=== PATIENT | female | born 1970 | race Caucasian/White ===

== ENCOUNTER → 2018-06-25 14:07 | Day surgery (SDC) | payer OTHER ==
[~2018-06-25 14:07] MED LIST: Buffered Lidocaine 1% SYRIN* 1 ML/SYRINGE INTRADERM ONE; Bupivacaine 0.25% SDV PF* 10 ML VIAL INJ ONE; HYDROcodone/ACETAMIN 5-325 MG* 1 TAB ONE; Lactated Ringers 1000 ML Bag* 1,000 ML IV SCH; Lidocaine 2% PF * 5 ML VIAL ONE; Naloxone* 0.4 MG/ML 1 ML VIAL IV PRN; Ondansetron INJ* 2 MG/ML VIAL IV PRN; Propofol* 10 MG/ML 20 ML BTL ONE; Sodium Citrate/Citric Acid* 15 ML UDC ONE; Sodium Citrate/Citric Acid* 15 ML UDC PO ONE; ceFAZolin 2 GM PREMIX in ORs 2 GM/50 ML BAG IVPB ONE; fentaNYL* 50 MCG/ML 2 ML VIAL (100 MCG VIAL) ONE
[2018-06-25] MEDS: fentaNYL* 50 MCG/ML 2 ML VIAL (100 MCG VIAL) IV PRN ×5 (18:00→18:35)
[2018-06-25 18:45] VITALS: BP 119/80
--- NOTE | 2018-06-26 08:24 | OP ---
DATE OF OPERATION: 06/25/18 - SDS DATE OF : 74 SURGEON: Jason Abreu MD. LAND MEASURER: JOHN Vegas. An loan assistant was needed for the procedure to aid in positioning of the arm. ANESTHESIOLOGIST: Dr. Rendon. ANESTHESIA: General. PRE-OP DIAGNOSIS: Right small finger proximal phalanx displaced fracture. POST-OP DIAGNOSIS: Right small finger proximal phalanx displaced fracture. OPERATIVE PROCEDURE: Closed reduction and percutaneous fixation of the right small finger proximal phalanx fracture. INDICATIONS: Whit has a fracture and apex palmar angulation. We had talked about her treatment options. She wanted to proceed with pinning of the fracture. She understands the risks of pin tract infection. She has had chronic pain issues. ESTIMATED BLOOD LOSS: 2 mL. COMPLICATIONS: None. FINDINGS: See above and below. DESCRIPTION OF PROCEDURE: Whit was seen in the preoperative holding area. The correct site, side, and procedure were identified. We came back to the operating room, and the arm was prepped and draped in the usual fashion and a time-out was performed. The arm was exsanguinated with the Esmarch and the tourniquet was inflated to 225 mmHg. I closed reduced the fracture. The alignment was confirmed on mini C -arm fluoroscopy. I passed one 0.045 K-wire from proximal radial extending out to distal ulna. This held the reduction nicely. I then took a second K-wire and passed it from proximal ulna extending out distal radial. The first wire I thought was causing just very slight overcorrection, so I backed it back up and as soon as I backed it back up, the fracture snapped into place. Then I readvanced it and got good fixation distally. At this point, everything was looking very good. The reduction was excellent. The pins were bent and clipped and dressed with Xeroform, 4x4s, sterile Webril, and then an ulnar gutter splint was applied. She was then taken to the recovery room in stable condition. [id number]/[facility] #: [id number] MTDD
== END | disposition home or self-care (01) ==
LOC: OR 14:07
PROVIDERS: ATTEND Orthopaedic Surgery Hand Surgery
DX: S62.616A Displaced fracture of proximal phalanx of right little finger, initial encounter for closed fracture (principal); J45.909 Unspecified asthma, uncomplicated; M19.90 Unspecified osteoarthritis, unspecified site; K21.9 Gastro-esophageal reflux disease without esophagitis; F41.8 Other specified anxiety disorders; M79.7 Fibromyalgia; Z87.891 Personal history of nicotine dependence; W19.XXXA Unspecified fall, initial encounter; Y92.9 Unspecified place or not applicable
CPT/HCPCS: 76000; 81025; A9270-GY; C1776; J0690; J2704; J3010; J3490

== ENCOUNTER → 2018-09-24 11:12 | Day surgery (SDC) | payer OTHER ==
[~2018-09-24 11:12] MED LIST changes: -Buffered Lidocaine 1% SYRIN* 1 ML/SYRINGE INTRADERM ONE; +Bupivacaine 0.5% SDV PF* 30ML VIAL ONE; -HYDROcodone/ACETAMIN 5-325 MG* 1 TAB ONE; -Lactated Ringers 1000 ML Bag* 1,000 ML IV SCH; +Lidocaine 1% INJ* 10 MG/ML 30 ML SDV ONE; -Lidocaine 2% PF * 5 ML VIAL ONE; -Naloxone* 0.4 MG/ML 1 ML VIAL IV PRN; -Ondansetron INJ* 2 MG/ML VIAL IV PRN; -Propofol* 10 MG/ML 20 ML BTL ONE; -Sodium Citrate/Citric Acid* 15 ML UDC ONE; -Sodium Citrate/Citric Acid* 15 ML UDC PO ONE; -ceFAZolin 2 GM PREMIX in ORs 2 GM/50 ML BAG IVPB ONE; -fentaNYL* 50 MCG/ML 2 ML VIAL (100 MCG VIAL) ONE
[2018-09-24 12:19] VITALS: BP 120/73
--- NOTE | 2018-09-24 13:31 | OP ---
DATE OF OPERATION: 09/24/18 - SDS DATE OF : 74 SURGEON: Jason Abreu MD CARD BOXER: JOHN Resendez ANESTHESIOLOGIST: None. ANESTHESIA: Local only with digital block performed via 0.5% Marcaine. PRE-OP DIAGNOSIS: Right ring finger indeterminate soft tissue mass. POST-OP DIAGNOSIS: Right ring finger indeterminate soft tissue mass. OPERATIVE PROCEDURE: Excision of right ring finger and indeterminate soft tissue mass. INDICATIONS: Whit has a mass that is on the ring finger starting near the DIP joint and extending down into the pulp near the midaxial line about 0.75 cm. It is large, it protrudes a bit, spinning mule tender when she touches it. We talked about risks and benefits, and she wants to proceed with surgery. ESTIMATED BLOOD LOSS: 2 mL. COMPLICATIONS: None. FINDINGS: See above and below. DESCRIPTION OF PROCEDURE: Whit was seen in the preoperative holding area. The correct site, side and procedure were identified. We came back to the operating room where the arm was prepped and draped in the usual fashion. A time-out was performed. A finger tourniquet was placed on the finger. I then made an incision just a little bit palmar to the midaxial line on the ulnar aspect of the right ring finger starting at the DIP joint and extending down towards the paronychia. I performed a marginal excision of the mass, I was able to get it to protrude up through my skin margins, placed some Ragnell retractors. I followed the tendon right down to the periosteum and looked like there might have been a stalk that is emanating from the DIP joint, this was tracked back down to the DIP joint where it was excised and amputated right at the DIP joint of the DIP joint capsule. I then went around the periphery, I made sure there was absolutely no mass remaining. I examined all the deep tissues. It looked like I have gotten everything there as well. We irrigated out the wound. I cauterized the base of that area where it looked like it was coming of the joint with the bipolar, but again this was not a cystic but a solid mass. Everything was looking good at this point. We irrigated out the wound, closed the skin with 4-0 nylon sutures. Soft dressing was applied and she was taken to the recovery room in stable condition. [id number]/[facility] #: [id number] [facility]
== END | disposition home or self-care (01) ==
LOC: OR 11:12
PROVIDERS: ATTEND Orthopaedic Surgery Hand Surgery
DX: D21.11 Benign neoplasm of connective and other soft tissue of right upper limb, including shoulder (principal); J45.909 Unspecified asthma, uncomplicated; M19.90 Unspecified osteoarthritis, unspecified site; K21.9 Gastro-esophageal reflux disease without esophagitis; F41.8 Other specified anxiety disorders; M79.7 Fibromyalgia; Z87.891 Personal history of nicotine dependence
CPT/HCPCS: 88304; J3490